=== PATIENT | male | born 1960 | race African-American/Black ===

== ENCOUNTER 2018-07-21 06:20 | Day surgery (SDC) | payer BC ==
[2018-07-21] VITALS (7 sets, daily range): BP systolic 108–123; BP diastolic 66–83
[~2018-07-21] VITALS: Ht 193 cm; Wt 115.7 kg
--- NOTE | 2018-07-21 08:28 | Anethesia Preoperative Eval ---
Anesthesia Pre-op PMH/ROS General Date of Evaluation: Jul 21, 2018 Time of Evaluation: 08:25 Anesthesiologist: Beronica ASA Score: ASA 2 Mallampati Score Class I : Soft palate, uvula, fauces, pillars visible Class II: Soft palate, uvula, fauces visible Class III: Soft palate, base of uvula visible Class IV: Only hard plate visible Mallampati Classification: Class II Surgeon: Herberth Diagnosis: Colon CA screening Surgical Procedure: Colonoscopy Anesthesia History: none Family History: no anesthesia problems Medications: see eMAR Patient NPO?: Yes Past Medical History Cardiovascular: Denies: HTN, CAD, GA, valve dz, arrhythmia, other Pulmonary: Denies: asthma, COPD, STEPHEN, other Gastrointestinal/Genitourinary: Reports: GERD - mild Neurologic/Psychiatric: Denies: dementia, CVA, depression/anxiety, TIA, other Endocrine: Denies: DM, hypothyroidism, steroids, other HEENT: Denies: cataract (L), cataract (R), glaucoma, [place] IRA (L), [place] IRA (R), other Hematology/Immune: Denies: anemia, DVT, bleeding disorder, other Musculoskeletal/Integumentary: Denies: OA, RA, DJD, DDD, edema, other Other: other - overweight PMH Narrative: as above PSxH Narrative: see H&P Anesthesia Pre-op Phys. Exam Physician Exam Last Vital Signs Date Time Temp Pulse Resp B/P (MAP) Pulse Ox O2 Delivery O2 Flow Rate FiO2 07/21/18 07:02 Room Air 07/21/18 06:58 97.5 63 18 109/76 96 Constitutional: NAD Neurologic: CN 2-12 intact Cardiovascular: RRR, no M/R/G Respiratory: CTA Gastrointestinal: S/NT/ND Airway Exam Mallampati Score: Class II MO: full ROM: full Teeth: intact Dentures: no upper, no lower Anesthesia Pre-op A/P Labs see chart Risk Assessment & Plan Assessment: ASA 2 Plan: MAC Status Change Before Surgery: Thiago Walker MD Jul 21, 2018 08:28
[2018-07-21] MEDS ORDERED: fentaNYL 100 mcg/2 mL IV PRN (08:30)
[2018-07-21] MEDS ORDERED: LR 1000ml ONE (09:00)
[2018-07-21] MEDS ORDERED: Midazolam 2mg/2ml Inj ONE (09:00)
[2018-07-21] MEDS ORDERED: fentaNYL 100 mcg/2 mL IV ONE (09:00)
--- NOTE | 2018-07-21 09:10 | Pre-Procedure Note/Attestation ---
Pre-Procedure Note/Attestation Complete Prior to Procedure Planned Procedure: not applicable Procedure Narrative: colonoscopy Indications for Procedure Pre-Operative Diagnosis: screening Attestation I attest that I discussed the nature of the procedure; its benefits; risks and complications; and alternatives (and the risks and benefits of such alternatives ), prior to the procedure, with the patient (or the patient's legal lead generation representative). I attest that, if there was a reasonable possibility of needing a blood transfusion, the patient (or the patient's legal lead generation representative) was given the [facility] standardized written summary, pursuant to the [place] Blood Safety Act ([place] Health and Safety Code # 1645, as amended). I attest that I re-evaluated the patient just prior to the surgery and that there has been no change in the patient's H&P, except as documented below: Jose Kevin MD Jul 21, 2018 09:10
--- NOTE | 2018-07-21 09:11 | Short Stay Surgery H&P ---
History of Present Illness History of Present Illness Chief Complaint see recent office note HPI Kassie Roman is a 58 year old male who was admitted on for Colon Screening Patient History Allergies: Uncoded Allergies: NKDA (Allergy, Unknown, 07/21/18) Physical Exam Vital Signs Last Vital Signs Date Time Temp Pulse Resp B/P (MAP) Pulse Ox O2 Delivery O2 Flow Rate FiO2 07/21/18 07:02 Room Air 07/21/18 06:58 97.5 63 18 109/76 96 Plan Attestation Are the patient's medical conditions optimized for surgery? Jose Kevin MD Jul 21, 2018 09:11
--- NOTE | 2018-07-21 09:32 | Short Stay Surgery H&P ---
History of Present Illness History of Present Illness Chief Complaint screening colon HPI Kassie Roman is a 58 year old male who was admitted on for Colon Screening Patient History Allergies: Uncoded Allergies: NKDA (Allergy, Unknown, 07/21/18) Review of Systems Cardiovascular: Reports: no symptoms Respiratory: Reports: no symptoms Skeletal: Reports: no symptoms Gastrointestinal: Reports: no symptoms Genitourinary: Reports: no symptoms Neurologic: Reports: no symptoms Endocrine: Reports: no symptoms Hematologic: Reports: no symptoms Physical Exam Vital Signs Last Vital Signs Date Time Temp Pulse Resp B/P (MAP) Pulse Ox O2 Delivery O2 Flow Rate FiO2 07/21/18 07:02 Room Air 07/21/18 06:58 97.5 63 18 109/76 96 Skin: normal HENT: normal Heart: normal Lungs: normal Abdomen: normal Extremities: normal Plan Plan of Care colonoscopy Attestation Are the patient's medical conditions optimized for surgery? Attestation Response: yes Jose Kevin MD Jul 21, 2018 09:32
--- NOTE | 2018-07-21 09:35 | Endoscopy Procedure Note ---
Endoscopy Procedure Note General Indication for Procedure: screening Procedures Performed: colonoscopy Operative Findings/Diagnosis: 5 polyps Specimen: yes Pt Tolerated Procedure Well: Yes Estimated Blood Loss: none Anesthesia Anesthesiologist: mirza Anesthesia: MAC Inserted Devices Implant(s) used?: No Quality Quality of Bowel Preparation: Good Did scope reach the cecum?: Yes Was there any complications?: No GI Core Measures 50 yrs or older w/o bx or poly: No 10yrs. F/U recommended: Yes If not recommended, why?: Above average risk 18 years or older w/prev. colo: No Jose Kevin MD Jul 21, 2018 09:35
--- NOTE | 2018-07-21 09:40 | Immediate Post-Op Evaluation ---
Immediate Post-Op Evalulation Immediate Post-Op Evalulation Procedure: Colonoscopy polypectomy Date of Evaluation: Jul 21, 2018 Time of Evaluation: 09:39 IV Fluids: 700 Blood Products: none Estimated Blood Loss: min Urinary Output: none Blood Pressure Systolic: 121 Blood Pressure Diastolic: 65 Pulse Rate: 60 Respiratory Rate: 20 O2 Sat by Pulse Oximetry: 98 Temperature (Fahrenheit): 97.7 Pain Score (1-10): 1 Nausea: No Vomiting: No Complications none Patient Status: reacts, patent, none Hydration Status: adequate Thiago Loco MD Jul 21, 2018 09:40
--- NOTE | 2018-07-21 10:19 | 48 Hour Post Anesthesia Eval ---
Post Anesthesia Evaluation Procedure: Colonoscopy polypectomy Date of Evaluation: Jul 21, 2018 Time of Evaluation: 10:18 Blood Pressure Systolic: 116 0: 62 Pulse Rate: 68 Respiratory Rate: 20 Temperature (Fahrenheit): 97.6 O2 Sat by Pulse Oximetry: 98 Airway: patent Nausea: No Vomiting: No Pain Intensity: 1 Hydration Status: adequate Cardiopulmonary Status: stable Mental Status/LOC: patient returned to baseline Follow-up Care/Observations: n/a Post-Anesthesia Complications: none Follow-up care needed: ready to discharge Thiago Loco MD Jul 21, 2018 10:19
--- NOTE | 2018-07-21 17:15 | Procedure Note ---
DATE OF PROCEDURE: 07/21/2018 SURGEON: Jose Kevin M.D. PROCEDURE: Colonoscopy with biopsy. ANESTHESIA: Per Dr. Loco. INSTRUMENT: Olympus adult flexible colonoscope. INDICATION: Screening colonoscopy. REASON FOR PROCEDURE: The procedure, risks, benefits, and possible consequences, including hemorrhage, aspiration, perforation and infection, and alternative treatments, were explained to the patient/legal guardian by Dr. Jose Kevin and the patient/legal guardian understood and accepted these risks. PROCEDURE IN DETAIL: After informed consent was obtained and the patient was adequately sedated, first rectal exam was performed, which was normal. Then, the scope was advanced from the rectum into the cecum and subsequently into the terminal ileum. Quality of prep was very good. The patient had evidence of scattered diverticulosis in the left colon. The patient had evidence of a total of five polyps, three in transverse, one in descending, and one in sigmoid. All less than 1 cm. All removed with the cold biopsy forceps technique. Retroflexion of rectum was performed, which showed evidence of small, but nonbleeding internal hemorrhoids. SUMMARY OF FINDINGS: 1. Total of five polyps removed. See above for details. 2. Diverticulosis. 3. Internal hemorrhoids. RECOMMENDATIONS: 1. Follow up pathology. 2. Recommend repeat colonoscopy in three years given five polyps. Jose Kevin M.D. DR: DANY JOB#: [id number] CC:
--- NOTE | 2018-07-23 21:08 | Cardiology Report ---
APPROVED REPORT EKG Measurement Heart [id number] Sinus bradycardia Otherwise normal ECG
== END 2018-07-21 10:40 | disposition home or self-care (01) ==
LOC: GAS 06:20
DX: Z12.11 Encounter for screening for malignant neoplasm of colon (principal); K57.90 Diverticulosis of intestine, part unspecified, without perforation or abscess without bleeding; K64.8 Other hemorrhoids; D12.4 Benign neoplasm of descending colon; D12.3 Benign neoplasm of transverse colon; K63.5 Polyp of colon; K21.9 Gastro-esophageal reflux disease without esophagitis; E66.3 Overweight; Z68.31 Body mass index [BMI] 31.0-31.9, adult
CPT/HCPCS: 45380; 93005; J2250; J3010; 94003; 94150